=== PATIENT | female | born 2000 | race Caucasian/White ===

== ENCOUNTER 2024-07-29 16:07 | Outpatient (AMB) | payer MEDICARE, MEDICAID, SELFPAY ==
--- NOTE | 2024-07-29 16:13 | MHC.OFFWIV ---
Intake Vital Signs 07/29/24 16:17 Height 5 ft 7 in Weight 296 lb BMI 46.4 BP 126/80 Blood Pressure Location Rt brachial Position Sitting Respiration 18 Pulse 116 H Pulse Source Pulse Oximeter Temp 99.1 F Temp Source Oral Pulse Oximetry (%) 98 Oxygen Delivery Method Room Air Intake Visit Reasons: [employer]-?rt pink eye Intake Note: Pt is here today for a walk in visit. Pt c/o redness, swelling pain, itchiness in her R eye since last night. Allergies No Known Allergies Allergy (Verified 07/29/24 16:21) Do you need a note to return to daycare/school/sports/work: No HPI HPI Comments History of Present Illness Details This is a 23-year-old female who presented to the walk-in clinic complaining of erythema and irritation and discharge/drainage of her right eye since last night. Patient states she felt as though she got something in her right eye and noticed that her eye was red and irritated and she had some goopy discharge. She woke up this morning with some more discharge. Her left eye is unaffected at this time. Patient does not wear contact lenses. She denies any significant visual disturbances. Review of Systems Const All systems reviewed & are unremarkable except as noted in HPI and below Reports no additional complaints Eyes Reports no additional complaints ENT Reports no additional complaints Card Reports no additional complaints Resp Reports no additional complaints GI Reports no additional complaints Reports no additional complaints Musc Reports no additional complaints Skin/Breast Reports system reviewed and no additional complaints, except as documented Neuro Reports no additional complaints Psych Reports no additional complaints Endo Reports no additional complaints Juanpablo/Lymph Reports no additional complaints Aller/Immun Reports no additional complaints Physical Exam Const Other: Vital signs reviewed. Constitutional: Non-toxic appearing. No acute distress. Well-developed and well-nourished. HEENT: Normocephalic and atraumatic. There is mild conjunctival injection with a scant amount of thick discharge/drainage of the right eye. No foreign bodies appreciated. No periorbital edema/erythema or upper/lower eyelid swelling. Skin: Warm and dry. No rashes or lesions noted. Neck: Full and painless range of motion. No cervical lymphadenopathy. Cardio: Regular rate. No lower extremity edema. No JVD. Pulmonary: No respiratory distress. Musculoskeletal: Normal range of motion in joints throughout the body. No deformity or other signs of injury. Neuro: Alert and oriented x4. Cranial nerves 2-12 grossly intact. No focal deficits appreciated. Psych: Normal mood and affect. Assessment & Plan Assessment & Plan (1) Bacterial conjunctivitis of right eye: Code(s): H10.9 - Unspecified conjunctivitis Plan: This is a 23-year-old female who presented to the walk-in clinic complaining of redness, irritation, and drainage/discharge from her right. On physical examination, she has mild conjunctival injection with scant discharge from the right eye. History and physical most consistent with acute bacterial conjunctivitis. She was sent home with a prescription for erythromycin ophthalmic ointment 4 times daily x7 days. I also recommended symptomatic management such as cool compresses multiple times daily. Patient was advised to follow-up here or proceed to the emergency room for persistent or worsening symptoms such as visual changes or eye pain. Medications: New erythromycin 0.5 inches ophthalmic (eye) QID 7 days 3.5 grams 0RF Coding Level of Care Code New Pt Level 3 (16570) Diagnoses Bacterial conjunctivitis of right eye H10.9
[2024-07-29 16:17] VITALS: BP 126/80; PULSE 116; RESP 18; TEMP 37.3; O2SAT 98; BMI 46.4
== END 2024-07-29 16:58 | disposition home or self-care (01) ==
PROVIDERS: Visit Provider Physician Assistant Medical
DX: H10.9 Unspecified conjunctivitis (principal)

== ENCOUNTER → 2024-07-29 16:07 | Outpatient (BNVA) | payer MEDICARE, MEDICAID, SELFPAY | DX: H10.9 Unspecified conjunctivitis (principal) | CPT/HCPCS: 99202 ==